=== PATIENT | female | born 1990 ===

== ENCOUNTER 2016-07-12 05:29 | Emergency (ER) | payer SELFPAY ==
[2016-07-12 05:29] VITALS: BMI 24.7
[2016-07-12 05:35] VITALS: BP 123/61; PULSE 135; RESP 15; TEMP 101.1; O2SAT 98
--- NOTE | 2016-07-12 05:55 | ED PDOC ---
HPI: Abdomen Chief Complaint (Provider): right flank pain History Per: Patient History/Exam Limitations: no limitations Onset/Duration Of Symptoms: Days (3) Outside of [place] travel?: No Current Symptoms Are (Timing): Still Present Pain Scale Rating Of: 7 Location Of Pain/Discomfort: Other (right flank) Quality Of Discomfort: Sharp Associated Symptoms: Fever, Urinary Symptoms (hematuria). denies: Chills, Nausea, Vomiting, Diarrhea, Loss Of Appetite, Constipation Exacerbating Factors: Movement, Deep Breaths Alleviating Factors: None Last Bowel Movement: Yesterday (normal) Abnormal Vaginal Bleeding: No Last Menstral Period: 05/30/16 <Srini Mobley - Last Filed: 07/12/16 06:51> <Britton Copeland - Last Filed: 07/12/16 06:57> Time Seen by Provider: 07/12/16 05:46 Chief Complaint (Nursing): Back Pain Additional Complaint(s): 26 year old female with no known medical history presents to ED with right flank pain. Patient states right flank pain began approx 1 week ago though minimal discomfort. However, 3 days ago, pain intensified and fever associated pain. Patient has been taking tylenol for fever/pain. Patient states the pain would not go away and began with blood in urine this morning. Denies nausea, vomiting, chest pain, sob, chills, constipation, diarrhea, recent travel, vaginal discharge, back pain, or dysuria. PMD: None. (Srini Mobley) Past Medical History Reviewed: Historical Data, Nursing Documentation, Vital Signs - Surgical History Surgical History: (x2) - Family History Family History: States: Unknown Family Hx - Immunization History Hx Tetanus Toxoid Vaccination: No Hx Influenza Vaccination: No Hx Pneumococcal Vaccination: No <Srini Mobley - Last Filed: 07/12/16 06:51> <Britton Copeland - Last Filed: 07/12/16 06:57> Vital Signs: Last Vital Signs Temp 101.1 F H 07/12/16 05:30 Pulse 135 H 07/12/16 05:30 Resp 15 07/12/16 05:30 BP 123/61 07/12/16 05:30 Pulse Ox 98 07/12/16 06:54 - Home Medications Home Medications: Ambulatory Orders Medication Instructions Recorded Cefprozil 500 mg PO BID #14 tab 05/03/15 Docusate [Colace] 100 mg PO BID #20 cap 02/21/16 Phosphate Enema [Fleet Enema 135 135 ml RC ONCE PRN #1 nma 02/21/16 Ml] Nitrofurantoin Macrocrystals 100 mg PO BID #14 cap 03/20/16 [Macrobid] Ciprofloxacin [Cipro] 500 mg PO Q12 #14 tab 07/12/16 Phenazopyridine HCl [Pyridium] 100 mg PO TID #6 tab 07/12/16 - Allergies Allergies/Adverse Reactions: Allergies Allergy/AdvReac Type Severity Reaction Status Date / Time No Known Allergies Allergy Verified 05/02/15 21:46 Review of Systems ROS Statement: Except As Marked, All Systems Reviewed And Found Negative (as mentioned in HPI) <Srini Mobley - Last Filed: 07/12/16 06:51> Physical Exam - Reviewed Nursing Documentation Reviewed: Yes Vital Signs Reviewed: Yes (tachycardia, febrile) - Physical Exam Appears: Positive for: No Acute Distress Head Exam: Positive for: ATRAUMATIC, NORMAL INSPECTION, NORMOCEPHALIC Skin: Positive for: Normal Color, Warm, Dry Eye Exam: Positive for: Normal appearance, EOMI, PERRL ENT: Positive for: Normal ENT Inspection Neck: Positive for: Normal, Painless ROM Cardiovascular/Chest: Positive for: Regular Rate, Rhythm Respiratory: Positive for: Normal Breath Sounds Gastrointestinal/Abdominal: Positive for: Bowel Sounds (present), Soft, Tenderness (right flank). Negative for: Distended, Guarding, Rebound Back: Positive for: Normal Inspection, R CVA Tenderness. Negative for: L CVA Tenderness Extremity: Positive for: Normal ROM Neurologic/Psych: Positive for: Alert, Oriented <Srini Mobley - Last Filed: 07/12/16 06:51> - Laboratory Results Result Diagrams: 07/12/16 06:22 07/12/16 06:22 Urine POC: Negative Urine dip results: Positive for: Leukocyte Esterase (large), Blood (large), Nitrate (positive), Ketones (40 mg/dL), Glucose (100 mg/dL), Bilirubin (large), Protein (>300mg/dL) - ECG O2 Sat by Pulse Oximetry: 98 Pulse Ox Interpretation: Normal <Srini Mobley - Last Filed: 07/12/16 06:51> - Laboratory Results Result Diagrams: 07/12/16 06:22 07/12/16 06:22 <Britton Copeland - Last Filed: 07/12/16 06:57> - Progress ED Course And Treament: Time: 544 Initial impression: 26 yo F with right flank pain associated with fever and hematuria x 3 days. Febrile, tachycardia. DDx includes but not limited to acute pyelonephritis vs cystitis vs colitis vs renal nephrolithiasis Plan: * CBC * CMP * MG * PHOS * LACTATE * 1L NS BOLUS * BLOOD CULTURE * URINE CULTURE * UA * URINE DIP * URINE PREG * CT ABDOMEN/PELVIS W/O CONTRAST * TORADOL 10mg * ROCEPHIN 1GM * REASSESS Time: 644 Patient clinically stable. Labs reviewed, consistent with Acute Pyelonephritis. Lactate normal, will discharge home with cipro and pyridium. Close follow up with PMD in 2-3 days. If symptoms worsen, return to ED immediately. (Srini Mobley) Medical Decision Making <Srini Mobley - Last Filed: 07/12/16 06:51> <Britton Copeland - Last Filed: 07/12/16 06:57> Medical Decision Making: Time: 06:36 --Abdomen/Pelvis CT FINDINGS: Lower thorax: No acute findings. ABDOMEN: Liver: Unremarkable. Gallbladder and bile ducts: No calcified stones. No ductal dilation. Pancreas: Unremarkable. No ductal dilation. Spleen: No splenomegaly. Adrenals: No mass. Kidneys and ureters: Mild stranding about RIGHT kidney. No renal calculi. Minimal pelvocaliectasis of RIGHT kidney. Minimally dilated RIGHT ureter. Stomach and bowel: No definite mural thickening. No obstruction. Appendix: No findings to suggest acute appendicitis. PELVIS: Bladder: Unremarkable. No stones. Reproductive: Unremarkable as visualized. ABDOMEN and PELVIS: Intraperitoneal space: Trace free fluid within pelvis. No free air. Bones/joints: No acute fracture. Soft tissues: Unremarkable. Vasculature: Unremarkable. No abdominal aortic aneurysm. Lymph nodes: No pathologically enlarged lymph nodes. IMPRESSION: 1. Minimal RIGHT hydroureteronephrosis without CT evidence of obstructing calculus. DDX: obstructing radiolucent stone, recently passed ureteral calculus, ureteral stricture, infection, obstructing ureteral mass. Clinical correlation and follow up are recommended. 2. Incidental/non-acute findings are described above. Time: 07:00 --Patient reports improvement with pain. Offered admission which he had declined because she states she feels better. --Upon provider reevaluation patient is feeling better, is medically stable, and requires no further treatment in the ED at this time. Patient will be discharged home with Rx for Cipro 500 mg and Pyridium 100 mg. Counseling was provided and all questions were answered regarding diagnosis and need for follow up with . There is agreement to discharge plan. Return if symptoms persist or worsen. Clinical Impression: Pyelonephritis (Britton Copeland) Disposition - Disposition Disposition Time: 07:00 <Srini Mobley - Last Filed: 07/12/16 06:51> - Patient ED Disposition Is Patient to be Admitted: No - Disposition Disposition: Routine/Home <Britton Copeland - Last Filed: 07/12/16 06:57> - Clinical Impression Clinical Impression: Pyelonephritis - Disposition Referrals: [facility] [Outside] Condition: STABLE Additional Instructions: Janes muhammad si necesita Prescriptions: Ciprofloxacin [Cipro] 500 mg PO Q12 #14 tab Phenazopyridine HCl [Pyridium] 100 mg PO TID #6 tab Instructions: Acute Pyelonephritis (ED) Print Language: [place] CITIZEN
[2016-07-12] MEDS ORDERED: Sodium Chloride 0.9% 1,000 ML IV SCH (06:00)
[2016-07-12] MEDS ORDERED: cefTRIAXone (Rocephin) 1 gm Inj ONE ×2 (06:22→07:17)
[2016-07-12 06:26] LABS: BASO % 0.2 % (0.0-2.0); HEMATOCRIT 39.2 % (34.0-47.0); LYMPH # 1.1 K/uL (1.0-4.3); LYMPH % 7.9 % (20.0-40.0); MEAN CELL VOLUME 90.3 fl (81.0-99.0); MEAN CORPUSCULAR HEMOGLOBIN 29.4 pg (27.0-31.0); MEAN CORPUSCULAR HGB CONC 32.6 g/dL (33.0-37.0); MEAN PLATELET VOLUME 8.9 fl (7.2-11.7); MONO # 1.4 K/uL (0.0-0.8); MONO % 9.8 % (0.0-10.0); NEUT # 11.5 K/uL (1.8-7.0); NEUT % 82.1 % (50.0-75.0); NRBC % 0.1 % (0.0-0.0); PLATELET COUNT 204 K/uL (130-400); RED CELL DISTRIBUTION WIDTH 12.7 % (11.5-14.5)
[2016-07-12 06:34] LABS: URINE BILIRUBIN NEGATIVE (NEGATIVE); URINE BLOOD LARGE (NEGATIVE); URINE COLOR RED (YELLOW); URINE GLUCOSE (UA) NEGATIVE (Normal); URINE KETONE 15 mg/dL (NEGATIVE)
[2016-07-12 06:35] LABS: RBC URINE 1200 /hpf (0-3); URINE BACTERIA SMALL (<OCC); URINE LEUKOCYTE ESTERASE SMALL Leu/uL (Negative); URINE PROTEIN >=300 mg/dL (NEGATIVE); URINE UROBILINOGEN 0.2 mg/dL (0.2-1.0); WBC URINE 20 /hpf (0-5)
--- NOTE | 2016-07-12 06:36 | CT ---
EXAM: CT Abdomen and Pelvis Without Intravenous Contrast CLINICAL HISTORY: 26 years old, female; Pain; Abdominal pain; Flank; Right; Prior surgery; Surgery date: 6+ months; Surgery type: Unknown; Additional info: Right flank pain, R/O pyelo TECHNIQUE: Axial computed tomography images of the abdomen and pelvis without intravenous contrast. This CT exam was performed using one or more of the following dose reduction techniques: automated exposure control, adjustment of the mA and/or kV according to patient size, and/or use of iterative reconstruction technique. Coronal and sagittal reformatted images were created and reviewed. COMPARISON: No relevant prior studies available. FINDINGS: Lower thorax: No acute findings. ABDOMEN: Liver: Unremarkable. Gallbladder and bile ducts: No calcified stones. No ductal dilation. Pancreas: Unremarkable. No ductal dilation. Spleen: No splenomegaly. Adrenals: No mass. Kidneys and ureters: Mild stranding about RIGHT kidney. No renal calculi. Minimal pelvocaliectasis of RIGHT kidney. Minimally dilated RIGHT ureter. Stomach and bowel: No definite mural thickening. No obstruction. Appendix: No findings to suggest acute appendicitis. PELVIS: Bladder: Unremarkable. No stones. Reproductive: Unremarkable as visualized. ABDOMEN and PELVIS: Intraperitoneal space: Trace free fluid within pelvis. No free air. Bones/joints: No acute fracture. Soft tissues: Unremarkable. Vasculature: Unremarkable. No abdominal aortic aneurysm. Lymph nodes: No pathologically enlarged lymph nodes. IMPRESSION: 1. Minimal RIGHT hydroureteronephrosis without CT evidence of obstructing calculus. DDX: obstructing radiolucent stone, recently passed ureteral calculus, ureteral stricture, infection, obstructing ureteral mass. Clinical correlation and follow up are recommended. 2. Incidental/non-acute findings are described above.
[2016-07-12 06:44] LABS: ALB/GLOB RATIO 1.2 (1.0-2.1); ALKALINE PHOSPHATASE 88 U/L (38-126); ALT/SGPT 25 U/L (9-52); AST/SGOT 26 U/L (14-36); BILIRUBIN,TOTAL 0.5 mg/dl (0.2-1.3); BLOOD UREA NITROGEN 6 mg/dl (7-17); CALCIUM 8.6 mg/dL (8.4-10.2); CARBON DIOXIDE 24 mmol/L (22-30); CHLORIDE 103 mmol/L (98-107); GFR AFRICAN-AMERICAN > 60; GLUCOSE,RANDOM 118 mg/dL (65-105); PHOSPHOROUS 2.7 mg/dl (2.5-4.5); POTASSIUM 3.6 MMOL/L (3.6-5.0); SODIUM 138 mmol/l (132-148); TOTAL PROTEIN 8.1 G/DL (6.3-8.2)
[2016-07-12 11:55] LABS: EOSINOPHIL 1 % (0-7); NEUTROPHIL 85 % (42-75); REACTIVE LYMPHOCYTES 1 % (0-0); TOTAL CELLS COUNTED 100
== END 2016-07-12 07:20 | disposition home or self-care (01) ==
LOC: H.ER 05:29
DX: N10 Acute pyelonephritis (principal); Z87.442 Personal history of urinary calculi
CPT/HCPCS: 74176; 80053; 81003; 81025; 83605; 83735; 84100; 85025; 85610; 85730; 87040; 87086; 87181; 96365; 96375; 99283; J0696; J1885; J7040

== ENCOUNTER 2016-10-07 14:40 | Emergency (ER) | payer OTHER ==
[2016-10-07 14:41] VITALS: BMI 24.7
[2016-10-07 14:48] VITALS: BP 103/69; PULSE 84; RESP 18; TEMP 98; O2SAT 99
--- NOTE | 2016-10-07 15:41 | ED PDOC ---
HPI: Eye Injury/Pain Time Seen by Provider: 10/07/16 15:01 Chief Complaint (Nursing): Eye Problem Chief Complaint (Provider): Left eye irritation and drainage x 1 days History Per: Patient History/Exam Limitations: no limitations Onset/Duration Of Symptoms: Days Current Symptoms Are (Timing): Still Present Injury To Eye?: No Severity: Mild Pain Scale Rating Of: 2 Quality: Burning Wears Contact Lens?: No Associated Symptoms: Pain, Itching, Discharge From Eye. denies: Decreased Vision, FB Sensation Past Medical History Reviewed: Historical Data, Nursing Documentation, Vital Signs Vital Signs: Last Vital Signs Temp 98 F 10/07/16 14:44 Pulse 84 10/07/16 14:44 Resp 18 10/07/16 14:44 BP 103/69 10/07/16 14:44 Pulse Ox 99 10/07/16 14:44 - Medical History PMH: No Chronic Diseases Denies: Chronic Kidney Disease - Surgical History Surgical History: (x2) - Family History Family History: States: Unknown Family Hx - Living Arrangements Living Arrangements: With Family - Social History Current smoker - smoking cessation education provided: No Alcohol: None - Immunization History Hx Tetanus Toxoid Vaccination: No Hx Influenza Vaccination: No Hx Pneumococcal Vaccination: No - Home Medications Home Medications: Ambulatory Orders Medication Instructions Recorded Cefprozil 500 mg PO BID #14 tab 05/03/15 Docusate [Colace] 100 mg PO BID #20 cap 02/21/16 Phosphate Enema [Fleet Enema 135 135 ml RC ONCE PRN #1 nma 02/21/16 Ml] Nitrofurantoin Macrocrystals 100 mg PO BID #14 cap 03/20/16 [Macrobid] Ciprofloxacin [Cipro] 500 mg PO Q12 #14 tab 07/12/16 Phenazopyridine HCl [Pyridium] 100 mg PO TID #6 tab 07/12/16 Polymyxin/Trimethoprim Sulfate 1 drop XX Q6H 10 Days 10/07/16 [Polytrim Ophth Soln] - Allergies Allergies/Adverse Reactions: Allergies Allergy/AdvReac Type Severity Reaction Status Date / Time No Known Allergies Allergy Verified 05/02/15 21:46 Review of Systems ROS Statement: Except As Marked, All Systems Reviewed And Found Negative Eyes: Positive for: Pain (Mild), Redness Physical Exam - Reviewed Nursing Documentation Reviewed: Yes Vital Signs Reviewed: Yes - Physical Exam Appears: Positive for: Well, Non-toxic, No Acute Distress Head Exam: Positive for: ATRAUMATIC, NORMAL INSPECTION, NORMOCEPHALIC Skin: Positive for: Normal Color, Warm, DRY Eye Exam: Positive for: Normal appearance, EOMI, PERRL, Conjunctival injection, Other ((+) yellow/white drainage ). Negative for: Scleral icterus ENT: Positive for: Normal ENT Inspection Neck: Positive for: Normal, Painless ROM Respiratory: Negative for: Accessory Muscle Use, Respiratory Distress Gastrointestinal/Abdominal: Negative for: Tenderness Back: Positive for: Normal Inspection Extremity: Positive for: Normal ROM Neurologic/Psych: Positive for: Alert, Oriented - ECG O2 Sat by Pulse Oximetry: 99 Disposition - Clinical Impression Clinical Impression: Conjunctivitis - Disposition Disposition Time: 15:42 Condition: STABLE Prescriptions: Polymyxin/Trimethoprim Sulfate [Polytrim Ophth Soln] 1 drop XX Q6H 10 Days Instructions: Conjunctivitis (ED)
== END 2016-10-07 15:45 | disposition home or self-care (01) ==
LOC: H.ER 14:40
DX: H10.9 Unspecified conjunctivitis (principal)

== ENCOUNTER 2017-04-14 19:34 | Emergency (ER) | payer SELFPAY ==
[2017-04-14 19:34] VITALS: BMI 24.7
[2017-04-14 20:52] VITALS: BP 107/69; PULSE 70; RESP 16; TEMP 98.6; O2SAT 100
--- NOTE | 2017-04-14 21:30 | ED PDOC ---
HPI: Influenza Time Seen by Provider: 04/14/17 21:08 Chief Complaint: Flu-like Symptoms Chief Complaint (Provider): Flu-like Symptoms History Per: Patient Exam Limitations: no limitations Onset/Duration Of Symptoms: Days (x 2) Symptoms include: fever, bodyaches, sore throat, cough (slight, dry) Additional complaint(s):: Peri is a 26 y/o female who presents to the ED c/o body aches and fever for the past 2 days with associated throat pain. Patient states she has been taking medication for her fever which helps for a little while. She also has slight dry cough. She last Tylenol at 2 PM. No nausea, vomiting, abdominal pain or diarrhea. No dysuria. PMD: None Past Medical History Reviewed: Historical Data, Nursing Documentation, Vital Signs Vital Signs: Last Vital Signs Temp 98.6 F 04/14/17 20:50 Pulse 70 04/14/17 20:50 Resp 16 04/14/17 20:50 BP 107/69 04/14/17 20:50 Pulse Ox 100 04/14/17 20:50 - Medical History PMH: No Chronic Diseases - Surgical History Surgical History: (x2) - Family History Family History: States: No Known Family Hx - Living Arrangements Living Arrangements: With Family - Social History Current smoker - smoking cessation education provided: No Alcohol: Occasional Drugs: Denies - Immunization History Hx Tetanus Toxoid Vaccination: No Hx Influenza Vaccination: No Hx Pneumococcal Vaccination: No - Home Medications Home Medications: Ambulatory Orders Medication Instructions Recorded Cefprozil 500 mg PO BID #14 tab 05/03/15 Docusate [Colace] 100 mg PO BID #20 cap 02/21/16 Phosphate Enema [Fleet Enema 135 135 ml RC ONCE PRN #1 nma 02/21/16 Ml] Nitrofurantoin Macrocrystals 100 mg PO BID #14 cap 03/20/16 [Macrobid] Ciprofloxacin [Cipro] 500 mg PO Q12 #14 tab 07/12/16 Phenazopyridine HCl [Pyridium] 100 mg PO TID #6 tab 07/12/16 Polymyxin/Trimethoprim Sulfate 1 drop XX Q6H 10 Days bottle 10/07/16 [Polytrim Ophth Soln] Acetaminophen [Tylenol 325mg tab] 650 mg PO Q4 PRN #1 bottle 04/14/17 Ibuprofen [Motrin] 600 mg PO Q6 PRN #15 tab 04/14/17 Oseltamivir Phosphate [Tamiflu] 75 mg PO BID #10 capsule 04/14/17 - Allergies Allergies/Adverse Reactions: Allergies Allergy/AdvReac Type Severity Reaction Status Date / Time No Known Allergies Allergy Verified 05/02/15 21:46 Review of Systems ROS Statement: Except As Marked, All Systems Reviewed And Found Negative Constitutional: Positive for: Fever, Chills, Other (body aches) ENT: Positive for: Throat Pain Respiratory: Positive for: Cough (dry, slight) Gastrointestinal: Negative for: Nausea, Vomiting, Abdominal Pain, Diarrhea Genitourinary Female: Negative for: Dysuria Neurological: Positive for: Headache. Negative for: Dizziness Physical Exam - Reviewed Nursing Documentation Reviewed: Yes Vital Signs Reviewed: Yes - Physical Exam Appears: Positive for: Well, Non-toxic, No Acute Distress Head Exam: Positive for: ATRAUMATIC, NORMAL INSPECTION, NORMOCEPHALIC Skin: Positive for: Normal Color, Warm, Dry Eye Exam: Positive for: Normal appearance ENT: Positive for: Pharyngeal Erythema Neck: Positive for: Normal, Painless ROM, Supple Cardiovascular/Chest: Positive for: Regular Rate, Rhythm. Negative for: Murmur Respiratory: Positive for: Normal Breath Sounds. Negative for: Respiratory Distress Extremity: Positive for: Normal ROM. Negative for: Pedal Edema, Deformity Lymphatic: Positive for: Normal Exam Neurologic/Psych: Positive for: Alert, Oriented. Negative for: Motor/Sensory Deficits Medical Decision Making Medical Decision Making: Time: 21:23 Initial Impression: 26 y/o female with flu-like symptoms, afebrile in ED. Initial Plan: --Chest XR --Motrin --Tylenol --Rapid Strep Chest x-ray is normal, rapid strep negative. Prescriptions given for Tamiflu, Motrin and Tylenol. Advised fluids, rest and follow up with clinic in 2-3 days. Scribe Attestation: Documented by Chris Castillo, acting as a scribe for Melva Espinoza PA-C Provider Scribe Attestation: All medical record entries made by the Scribe were at my direction and personally dictated by me. I have reviewed the chart and agree that the record accurately reflects my personal performance of the history, physical exam, medical decision making, and the department course for this patient. I have also personally directed, reviewed, and agree with the discharge instructions and disposition. - ECG O2 Sat by Pulse Oximetry: 100 Pulse Ox Interpretation: Normal Disposition - Clinical Impression Clinical Impression: Influenza-like symptoms - Patient ED Disposition Is Patient to be Admitted: No Counseled Patient/Family Regarding: Studies Performed, Diagnosis, Need For Followup, Rx Given - Disposition Referrals: [facility] [Outside] Disposition: Routine/Home Disposition Time: 22:58 Condition: IMPROVED Additional Instructions: Take prescription medications as directed. Rest and drink plenty of fluids. Follow up with primary doctor or clinic in 2-3 days. Prescriptions: Acetaminophen [Tylenol 325mg tab] 650 mg PO Q4 PRN #1 bottle PRN Reason: Fever >100.4 F Ibuprofen [Motrin] 600 mg PO Q6 PRN #15 tab PRN Reason: Pain, Moderate (4-7) Oseltamivir Phosphate [Tamiflu] 75 mg PO BID #10 capsule Instructions: Flu, Adult (DC) Forms: [employer] (Slovak)
--- NOTE | 2017-04-15 09:28 | RAD ---
HISTORY: cough COMPARISON: 04/16/2013 TECHNIQUE: Chest PA and lateral FINDINGS: LUNGS: No active pulmonary disease. PLEURA: No significant pleural effusion identified. No pneumothorax apparent. CARDIOVASCULAR: Normal. OSSEOUS STRUCTURES: No significant abnormalities. VISUALIZED UPPER ABDOMEN: Normal. OTHER FINDINGS: None. IMPRESSION: No active disease.
== END 2017-04-14 23:04 | disposition home or self-care (01) ==
LOC: H.ER 19:34
DX: J11.1 Influenza due to unidentified influenza virus with other respiratory manifestations (principal)

== ENCOUNTER 2018-06-13 16:15 | Emergency (ER) | payer OTHER ==
[2018-06-13 16:15] VITALS: BMI 24.7
[2018-06-13 17:23] VITALS: PULSE 79; RESP 16
[2018-06-13 18:05] LABS: BASO % 0.1 % (0.0-2.0); EOS # 0.1 K/uL (0.0-0.7); EOS % 0.7 % (0.0-4.0); LYMPH # 1.8 K/uL (1.0-4.3); LYMPH % 20.7 % (20.0-40.0); MEAN CELL VOLUME 90.4 fl (81.0-99.0); MEAN CORPUSCULAR HEMOGLOBIN 30.1 pg (27.0-31.0); MEAN CORPUSCULAR HGB CONC 33.3 g/dL (33.0-37.0); MEAN PLATELET VOLUME 8.8 fl (7.2-11.7); MONO # 0.8 K/uL (0.0-0.8); MONO % 9.2 % (0.0-10.0); NEUT # 6.2 K/uL (1.8-7.0); NEUT % 69.3 % (50.0-75.0); NRBC % 0.1 % (0.0-0.0); RBC 4.31 Mil/uL (3.80-5.20); RED CELL DISTRIBUTION WIDTH 13.1 % (11.5-14.5); WHITE BLOOD COUNT 8.9 K/uL (4.8-10.8)
[2018-06-13 18:14] LABS: ALB/GLOB RATIO 1.4 (1.0-2.1); ALBUMIN 4.6 g/dL (3.5-5.0); ALT/SGPT 22 U/L (9-52); AST/SGOT 23 U/L (14-36); BLOOD UREA NITROGEN 14 mg/dl (7-17); CALCIUM 9.3 mg/dL (8.4-10.2); GFR NON-AFRICAN AMERICAN > 60; LIPASE 115 U/L (23-300)
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
[2018-06-13 18:23] LABS: SQUAMOUS EPITHIAL 1 /hpf (0-5); URINE AMORPHOUS SEDIMENT RARE /ul (<OCC); URINE BACTERIA OCC (<OCC); URINE BILIRUBIN NEGATIVE (NEGATIVE); URINE BLOOD NEGATIVE (NEGATIVE); URINE CLARITY SLIGHTY-CLOUDY (Clear); URINE COLOR YELLOW (YELLOW); URINE GLUCOSE (UA) NEG (NEGATIVE); URINE LEUKOCYTE ESTERASE TRACE Leu/uL (Negative); URINE PROTEIN NEGATIVE (NEGATIVE); URINE UROBILINOGEN 0.2-1.0 mg/dL (0.2-1.0)
--- NOTE | 2018-06-13 18:32 | RAD ---
Date of service: 06/13/2018 HISTORY: left low rib pain COMPARISON: 04/14/2017. TECHNIQUE: Chest PA and lateral views FINDINGS: LUNGS: No active pulmonary disease. PLEURA: No significant pleural effusion identified. No pneumothorax apparent. CARDIOVASCULAR: No aortic atherosclerotic calcification present. Normal cardiac size. No pulmonary vascular congestion. OSSEOUS STRUCTURES: No significant abnormalities. VISUALIZED UPPER ABDOMEN: Normal. OTHER FINDINGS: None. IMPRESSION: No active disease. No significant interval change compared to the prior examination(s).
--- NOTE | 2018-06-13 18:43 | RAD ---
Date of service: 06/13/2018 PROCEDURE: Radiographs of the Chest and Left Ribs. HISTORY: left lower rib pain COMPARISON: None available. TECHNIQUE: Frontal radiograph of the chest and multiple oblique radiographs of the left ribs were obtained. 4 views obtained. FINDINGS: LEFT RIBS: No fracture or focal lesion visualized. LUNGS: Clear. PLEURA: No pneumothorax or pleural fluid. CARDIOVASCULAR: Normal cardiac size. No pulmonary vascular congestion. No aortic atherosclerotic calcification present OTHER FINDINGS: None. IMPRESSION: Unremarkable radiographs of the chest and left ribs. No left rib fracture.
[2018-06-13 19:33] VITALS: BP 117/60; TEMP 98.2
[2018-06-13 20:07] VITALS: O2SAT 100
--- NOTE | 2018-06-14 09:44 | CARD ---
APPROVED REPORT Date of service: 06/13/2018 EKG Measurement Heart [id number] <Conclusion> Normal sinus rhythm Normal ECG
== END 2018-06-13 19:30 | disposition home or self-care (01) ==
LOC: H.ER 16:15
DX: R07.81 Pleurodynia (principal); N39.0 Urinary tract infection, site not specified; R10.9 Unspecified abdominal pain
CPT/HCPCS: 71046; 71101; 80053; 81003; 81025; 83690; 85025; 87491; 87591; 93005; 96374; 99283; J1885